=== PATIENT | male | born 1945 | race Caucasian/White ===

== ENCOUNTER 2019-07-23 08:00 | Outpatient (CLI) | payer MEDICARE, BC ==
[~2019-07-23 08:00] MED LIST: NO HOME MEDS
== END 2019-07-23 23:59 | disposition home or self-care (01) ==
LOC: PRE-OP 08:00 → EDSTATUS 10-09 08:45
PROVIDERS: ATTEND Surgery
DX: K42.9 Umbilical hernia without obstruction or gangrene (principal); Z53.21 Procedure and treatment not carried out due to patient leaving prior to being seen by health care provider

== ENCOUNTER 2019-10-30 06:03 | Day surgery (SDC) | payer MEDICARE, BC ==
[2019-10-24 12:12] LABS: CLARITY,URINE CLEAR (Clear); COLOR,URINE YELLOW (Yellow); GLUCOSE, URINE NEGATIVE (Neg); KETONES,URINE NEGATIVE (Neg); LEUKOCYTE ESTERASE ,URINE NEGATIVE (Neg); NITRITES, URINE NEGATIVE (Neg); OCCULT BLOOD,URINE NEGATIVE (Neg); PH,URINE 5.5 (4.8-8.0); PROTEIN,URINE NEGATIVE (Neg); UROBILINOGEN,URINE 0.2 E.U/dL (0.2-1.0)
[2019-10-24 12:13] LABS: BASOPHILS # (AUTO) 0.1 X10'3 (0-0.2); BASOPHILS % (AUTO) 1.1 % (0-1); EOSINOPHILS # (AUTO) 0.1 X10'3 (0-0.9); EOSINOPHILS % (AUTO) 1.3 % (0-6); LYMPHOCYTES # (AUTO) 2.1 X10'3 (1.1-4.8); LYMPHOCYTES % (AUTO) 37.9 % (21-51); MEAN CORPUSCULAR HEMOGLOBIN 33.5 PG (27.0-31.0); MEAN CORPUSCULAR HGB CONC 33.3 g/dL (33.0-36.5); MEAN CORPUSCULAR VOLUME 100.5 FL (78-98); MONOCYTES # (AUTO) 0.4 X10'3 (0-0.9); MONOCYTES % (AUTO) 6.8 % (2-12); NEUTROPHILS # (AUTO) 2.9 X10'3 (1.8-7.7); NEUTROPHILS % (AUTO) 52.9 % (42-75); PRE OP HEMATOCRIT 45.1 % (42.0-52.0); PRE OP PLATELET COUNT 296 X10'3 (140-440); RED BLOOD COUNT 4.49 X10'6 (4.70-6.10); RED CELL DISTRIBUTION WIDTH 14.1 % (11.5-14.5)
[2019-10-24 12:14] LABS: UA COLLECTION TYPE CLN CATCH MIDSTREAM
[2019-10-24 12:28] LABS: ALBUMIN 3.8 G/DL (3.4-5.0); ALBUMIN/GLOBULIN RATIO 1.1 (1.1-1.5); ALKALINE PHOSPHATASE 90 IU/L (46-116); BLOOD UREA NITROGEN 19 MG/DL (7-18); BUN/CREATININE RATIO 19.4 (5.4-32.0); CALCIUM 9.5 MG/DL (8.5-10.1); CHLORIDE 107 MMOL/L (99-107); CREATININE 0.98 MG/DL (0.60-1.10); PRE OP ALT 26 U/L (30-65); PRE OP ANION GAP 7 (8-16); PRE OP AST 24 U/L (10-37); PRE OP BILIRUB, TOTAL 0.4 MG/DL (0.0-1.0); PRE OP GLUCOSE 93 MG/DL (70-104); PRE OP SODIUM 142 MMOL/L (135-145); TOTAL CARBON DIOXIDE 27.7 MMOL/L (24-32); TOTAL PROTEIN 7.4 G/DL (6.4-8.2); eGFR 74 ML/MIN
[~2019-10-30] VITALS: Ht 167.6 cm; Wt 72.6 kg
[2019-10-30] VITALS (14 sets, daily range): BP systolic 103–140; BP diastolic 55–89
[~2019-10-30 06:03] MED LIST changes: +ASTA4CAP PO; +CLINDAmcin 900mg/NS 50ml IVPB 50 ML IV ONE; +CYAN100082 PO; +ERGO400C PO; +ESSENTIAL OILS PO; -NO HOME MEDS; +OMEG-15 PO; +SAW/1TAB2 PO; +VIT1CAPS46 PO; +famotidine 20mg tablet PO ONE; +ringers solution, lacted 1,000 ML IV SCH
[2019-10-30] MEDS ORDERED: LIDOcaine 1% (10mg/ml) 2ml vial ONE (06:23)
[2019-10-30] MEDS ORDERED: ceFAZolin 1000mg inj ONE (07:59)
[2019-10-30] MEDS ORDERED: BUPIVAcaine/PF 2.5mg/ml (0.25%) 10ml vial ONE (07:59)
[2019-10-30] MEDS ORDERED: clindamycin phosphate 150mg/ml inj. ONE (08:42)
[2019-10-30] MEDS ORDERED: glycopyrrolate 0.2mg/ml inj ONE (08:57)
[2019-10-30] MEDS ORDERED: sevoflurane 250ml liquid IH ONE (08:57)
[2019-10-30] MEDS ORDERED: neostigmine methylsulfate 1 MG/ML 10ml vial ONE (08:57)
[2019-10-30] MEDS ORDERED: rocuronium 10mg/ml inj IV ONE (08:57)
[2019-10-30] MEDS ORDERED: acetaminophen 1000 MG/100ml vial IV ONE (08:57)
[2019-10-30] MEDS ORDERED: fentaNYL/PF 50MCG/1 ML 2ML syringe ONE (09:03)
[2019-10-30] MEDS ORDERED: midazolam 2 mg/2 ml injection ONE (09:04)
[2019-10-30] MEDS ORDERED: LIDOcaine 2% (20mg/ml) 5ml vial ONE (09:04)
[2019-10-30] MEDS ORDERED: propofol inj 20 ML IV ONE (09:04)
[2019-10-30] MEDS ORDERED: dexamethasone sod phosphate 4mg/ml inj. ONE (09:17)
[2019-10-30] MEDS ORDERED: ketorolac trometh. 30mg/ml inj. ONE (09:17)
[2019-10-30] MEDS ORDERED: ondansetron/PF 4mg/2ml inj ONE (09:17)
[2019-10-30] MEDS ORDERED: ePHEDrine 50MG/ML INJ. ONE (09:19)
[2019-10-30] MEDS ORDERED: ringers solution, lacted 1,000 ML IV SCH (09:32)
[2019-10-30] MEDS ORDERED: morphine 4 MG/ML inj SYRINge IV PRN (09:35)
[2019-10-30] MEDS ORDERED: proCHLORperazine 10 MG/2 ml inj IV PRN (09:35)
[2019-10-30] MEDS ORDERED: meperidine/PF 25mg/ml syringe IV PRN ×3 (09:35)
[2019-10-30] MEDS ORDERED: morphine 2 MG/ML inj. syringe IV PRN (09:35)
[2019-10-30] MEDS ORDERED: ondansetron/PF 4mg/2ml inj IV PRN (09:35)
[2019-10-30] MEDS ORDERED: meperidine/PF 25mg/ml syringe ONE (10:10)
--- NOTE | 2019-10-30 10:22 | NUR ---
RECIEVED FROM OR VIA BED ACCOMPANIED BY ANESTHESIOLOGIST DR ANDINO, REPORT GIVEN. BANDAIDS X4 TO ABD CDI, 20 GAUGE PIV LUE PATENT AND RUNNING LR AT 100 ML/HR. TRAVIS LEYVA, VSS.10L MASK ON WITH 99% SATURATIONS. Addendum: 10/30/19 at 1043 by Dion Loaiza RN, RN Amended: Links added.
--- NOTE | 2019-10-30 12:43 | NUR ---
All dc criteria for discharge home has been met. IV taken out without complications. All questions answered regarding dc paperwork. Vss. Significant other present to take patient home. Dressings cdi and vital signs stable. Taken out via wheelchair to personal vehicle where patient taken home by family/friend. DISCUSSED USE OF PILLOW TO SPLINT AND USE OF INCENTIVE SPIROMETER. Addendum: 10/30/19 at 1244 by Dion Loaiza RN, RN Amended: Links added.
== END 2019-10-30 11:32 | disposition home or self-care (01) ==
LOC: PAS 06:03
PROVIDERS: ATTEND Surgery
DX: K42.9 Umbilical hernia without obstruction or gangrene (principal); Z98.890 Other specified postprocedural states; Z87.891 Personal history of nicotine dependence; Z88.0 Allergy status to penicillin; Z88.8 Allergy status to other drugs, medicaments and biological substances; Z79.899 Other long term (current) drug therapy; Z72.89 Other problems related to lifestyle; Z84.89 Family history of other specified conditions; Z11.59 Encounter for screening for other viral diseases
CPT/HCPCS: 36415; 49652; 80053; 81003; 82948; 85025; 87635; 93005; C1758; C1781; J0131; J0690; J1100; J1885; J2001; J2175; J2250; J2405; J2704; J2710; J3010; J3490; J7120; A4215; A4618; A7000

== ENCOUNTER 2025-02-04 14:45 | Day surgery (SDC) | payer MEDICARE, BC ==
[2025-02-03 16:31] LABS: MEAN PLATELET VOLUME 6.6 FL (7.4-10.4); PRE OP HEMATOCRIT 42.0 % (42.0-52.0); PRE OP HEMOGLOBIN 14.3 g/dL (14.0-17.9); PRE OP PLATELET COUNT 287 X10'3 (140-440); PRE OP WHITE BLOOD COUNT 8.9 10'3 (4.8-10.8); RED CELL DISTRIBUTION WIDTH 15.6 % (11.5-14.5)
[2025-02-03 16:39] LABS: CREATININE 0.98 MG/DL (0.60-1.10); PRE OP ALT 32 U/L (30-65); PRE OP ANION GAP 8 (8-16); PRE OP BILIRUB, TOTAL 0.3 MG/DL (0.0-1.0); PRE OP GLUCOSE 90 MG/DL (70-104); PRE OP POTASSIUM 3.9 MMOL/L (3.4-5.1); PRE OP SODIUM 141 MMOL/L (135-145); TOTAL CARBON DIOXIDE 28.7 MMOL/L (24-32); eGFR 73 ML/MIN
--- NOTE | 2025-02-03 16:54 | ELECTROCARDIOGRAPH REPORT ---
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 DONNELL Woo Measurements Intervals [place] Rate: 47 P: 53 DC: 231 QRS: -75 QRSD: 135 T: 40 QT: 436 QTc: 386 Interpretive Statements Sinus bradycardia Prolonged DC interval Nonspecific IVCD with LAD Electronically Signed On 02-04-2025 9:23:[address] DONNELL Woo Please click the below link to view image of tracing.
[2025-02-03 17:01] LABS: PRE OP AST 21 U/L (10-37)
[~2025-02-04] VITALS: Ht 167.6 cm; Wt 70.4 kg
[2025-02-04] VITALS (13 sets, daily range): BP systolic 75–119; BP diastolic 41–101; PULSE 53–84; RESP 11–20; TEMP 98.6; O2SAT 93–97
[~2025-02-04 14:45] MED LIST changes: -ASTA4CAP PO; -CLINDAmcin 900mg/NS 50ml IVPB 50 ML IV ONE; -ERGO400C PO; -ESSENTIAL OILS PO; +ROSU5TAB51 PO; +VITE1000C PO; -famotidine 20mg tablet PO ONE; -ringers solution, lacted 1,000 ML IV SCH
[2025-02-04] MEDS: ringers solution, lacted 1,000 ML IV SCH (16:07)
[2025-02-04] MEDS: clindamycin-Cleocin 900mg/D5W 50 ML IV ONE (16:07)
[2025-02-04] MEDS ORDERED: morphine 4 MG/ML inj SYRINge IV PRN (16:20)
[2025-02-04] MEDS ORDERED: fentaNYL/PF 50MCG/1 ML 2ML syringe IV PRN ×2 (16:20)
[2025-02-04] MEDS ORDERED: ondansetron/PF 4mg/2ml inj IV PRN (16:20)
[2025-02-04] MEDS ORDERED: ringers solution, lacted 1,000 ML IV SCH (16:20)
[2025-02-04] MEDS ORDERED: hydrALAZINE 20mg/ml inj. IV PRN (16:20)
[2025-02-04] MEDS ORDERED: labetalol 20mg/4ml (5mg/ml) syringe IV PRN (16:20)
[2025-02-04] MEDS ORDERED: BUPIVAcaine/PF 2.5mg/ml (0.25%) 10ml vial ONE (17:23)
[2025-02-04] MEDS ORDERED: LIDOcaine 1% 30ml preserv. free vial ONE (17:23)
[2025-02-04] MEDS ORDERED: desflurane 240ml liquid inh. IH ONE (17:30)
--- NOTE | 2025-02-04 17:36 | HISTORY AND PHYSICAL ---
History & Physical Providers to CC CC: ANGIE MOLINA MD ~ History of Present Illness Primary Medical Doctor: Dr. Peng Reason for Admit\Complaint: Bilateral inguinal hernia History of Present Illness Patient referred to me and seen in the office yesterday. Referred for bilateral inguinal hernia. Patient states that he noticed the right side about six months ago which has increased in size. There was a lump there. He also noticed a similar lump on the left side, although smaller in size. He is concerned as he will be going elk hunting in March and would like to get these fixed as soon as possible. They cause him minor discomfort. He does have difficulty urinating, however, this seems to have predated his inguinal hernias. He does have a history of exploratory laparotomy for a small-bowel obstruction in the past. No difficulty moving his bowels although he does state it is sometimes hard to push. Allergies: Coded Allergies: Cephalexin Monohydrate (Verified Allergy, Unknown, ITCHING, SWELLING INSIDE AND OUTSIDE, 02/03/25) Penicillins (Verified Allergy, Unknown, RASH,SWELLING, 09/19/19) Uncoded Allergies: horseradish (Allergy, Unknown, 01/30/13) jalapeno (Allergy, Unknown, 01/30/13) Home Medications Home Medications Active Reported VITAMIN E capsule (Vitamin E) 450 Mg (1000 Unit) Capsule 1 Cap PO DAILY 30 Days Rosuvastatin Calcium 5 Mg Tablet 1 Tab PO Q48H Prostate Health Caplet (Saw/Vit E/Sod Tiki/Lyc/Beta/Pyg) 1 Each Tablet 1 Tab PO DAILY Preservision Areds 2 Softgel (Vit C/E/Zn/Coppr/Lutein/Zeaxan) 1 Each Capsule 1 Cap PO DAILY B-12 (Cyanocobalamin (Vitamin B-12)) 1,000 Mcg Tablet.er 1 Tab PO DAILY Fish Oil 1,400 Mg Softgel ([place]-3/Dha/Epa/Fish Oil) 1 Each Capsule. 1 Cap PO DAILY Past Medical History Past Medical History Hyperlipidemia Past Surgical History Surgical History Comment Appendectomy Exploratory laparotomy with lysis of adhesions Past Social History Social History Comment Negative for tobacco use but was a previous smoker quitting at the age of 33 Drinks alcohol about once per week. No drug use. He is retired. Health Maintenance Health Maintenance Not applicable ROS ROS Reviewed and negative with the exception of those found in the history of present illness Exam General: 79-year-old male in no acute distress HEENT: No scleral icterus or conjunctival injection oral and nasal mucosa are pink and moist Neck: Supple and nontender Chest: Lungs are clear to auscultation bilaterally Cardiovascular: Regular rate and rhythm without murmurs Abdomen: Soft and nondistended Midline surgical scar consistent with past surgical history There was a 1 cm reducible umbilical hernia with no overlying skin changes Extremities: Well-perfused without edema Central Nervous System: Grossly intact Musculoskeletal: 5/5 strength in all four extremities Skin: Warm and dry Diagnostic Data Last Recorded Lab Results: 02/03/25 1616 02/03/25 1616 Counseling Services Smoking & Tobacco Cessation: N/A Advance Care Planning Advanced Care planning: N/A Problems: (1) Bilateral inguinal hernia (2) Umbilical hernia Additional Plan The risks, benefits, and alternatives to a robotic assisted, laparoscopic bilateral inguinal hernia repair with mesh as well as likely umbilical hernia repair via open approach were discussed with the patient. Risks include, but are not limited to, bleeding, infection, injury to intra-abdominal structures, hernia recurrence and chronic postoperative pain. Given the patient's surgical history, it is also possible that I may need repair these via open approach. Patient verbalized understanding and wishes to proceed with surgery. We will do so today as scheduled. Sepsis Screening Reassessment Date: Feb 04, 2025 ANGIE MOLINA MD Feb 04, 2025 17:36
[2025-02-04] MEDS ORDERED: HYDROcodone/acetaminophen 5mg/325mg tablet PO PRN (19:15)
--- NOTE | 2025-02-04 19:23 | OPERATIVE REPORT ---
Operative Report Providers to CC: UDAY MOLINA MD ~ Date of Procedure: Feb 04, 2025 Pre-Operative Diagnosis: Bilateral inguinal hernia, umbilical hernia Post-Operative Diagnosis Bilateral inguinal hernias Procedure Performed Robotic assisted, laparoscopic bilateral inguinal hernia repair with mesh Surgeon: Uday Molina MD FACS Embedded Systems Designer None Anesthesiologist: Jose Juan Vargas Type of Anesthesia: General Findings: Bilateral indirect inguinal hernias; right > left No umbilical hernia as the suspected defect was covered by previously placed intra-abdominal hernia mesh Wound class I Complications None Prosthetics\Implants used: Bilateral large Dextile mesh Estimated Blood Loss: Minimal Specimen Removed: None Description of Procedure: Patient was brought to the operating room and identified by the nursing staff and the attending physician. Patient was placed supine and general anesthesia was induced. The patient's abdomen was prepped and draped in the standard sterile fashion. Preoperative antibiotics were given. Veress needle technique was used at montesinos's point in the abdomen was insufflated without incident. Left mid abdominal optical 12 mm trocar was used to gain access to the abdomen under laparoscopic visualization. Abdomen was surveyed. There were some adhesions, however, these were fairly mild. There was some omentum near the 12 mm port site tented up to the anterior abdominal wall and in the mid abdomen there was a single loop of small intestine tented up and adherent to a surgical metal tack. It appeared the tack had inverted and the metallic portion was exposed and adherent to the loop of bowel. At the level of the umbilicus where there was a suspected hernia, the area was completely covered by a previously placed intra-abdominal hernia mesh. In the right mid abdomen just lateral to the mesh, an 8.5 mm robotic trocar was placed under laparoscopic visualization. Just above the superior margin of the hernia mesh, a 2nd 8.5 mm robotic trocar was placed. Through this port, I was able to lyse the single tin y little adhesion to the metallic tack. The tack was then removed with a laparoscopic grasper and discarded. Patient was placed in Trendelenburg position. The da Sigifredo robotic arm was docked to the patient. Instruments were guided intra-abdominally under laparoscopic visualization. Peritoneal rent was created starting at the left anterior superior iliac spine and carried across the anterior abdominal wall to the contralateral anterior superior iliac spine. The peritoneal flap was created and carried down to the symphysis pubis. Dissection was carried out bilaterally. On the left, there was a small indirect inguinal hernia as well as a very small indirect inguinal hernia on the right, there was a moderate-sized indirect inguinal hernia. These were all reduced completely. Peritoneum was dissected away from the cord structures and out laterally to accommodate 2 separate pieces of large Dextile mesh. Bilateral critical views of the myopectineal orifice were obtained. Mesh and suture was passed into the abdomen. Bilateral mesh was placed covering potential obturator, femoral, direct, and indirect hernia spaces. Mesh was anchored at Kory's ligament, rectus muscle in the midline, and out laterally just anterior to the anterior superior iliac spine. Mesh laid without wrinkles or folds. Peritoneal rent was then reapproximated with running, absorbable 2/0 V-lock suture. Calvin were retrieved. The 12 mm port site was removed and its fascia closed percutaneously with 0 Vicryl suture. Abdomen was deflated and remaining 8.5 mm robotic trocars were removed. Skin was closed at all sites with 4-0 Monocryl sutures in a subcuticular fashion. Sterile dressings were applied. Patient was awakened and taken to the postanesthesia care unit in stable condition. Counts repoted as correct: Yes UDAY MOLINA MD Feb 04, 2025 19:23
[2025-02-04] MEDS: albumin (Human) 5% 250ml 250 ML IV ONE (19:25)
[2025-02-04] MEDS: LidoCAINE 2% Topical Jelly 11mL syringe (UROJET) TOP ONE (21:17)
== END 2025-02-04 21:40 | disposition home or self-care (01) ==
LOC: PAS 14:45
PROVIDERS: ATTEND Surgery
DX: K40.20 Bilateral inguinal hernia, without obstruction or gangrene, not specified as recurrent (principal); R94.31 Abnormal electrocardiogram [ECG] [EKG]; Z87.891 Personal history of nicotine dependence; Z79.899 Other long term (current) drug therapy; Z90.49 Acquired absence of other specified parts of digestive tract; Z98.890 Other specified postprocedural states; Z88.0 Allergy status to penicillin; Z88.8 Allergy status to other drugs, medicaments and biological substances
CPT/HCPCS: 36415; 49650; 80053; 82948; 85025; 93005; A4215; A4615; A4618; C1781; J1100; J2003; J2405; J2704; J3490; J7030; J7120; P9045; Z7506; Z7508; Z7512; Z7610